=== PATIENT | female | born 1975 | race Hispanic/Latino ===

== ENCOUNTER 2018-10-14 15:51 | Emergency (ER) | payer MEDICAID, OTHER ==
--- NOTE | 2018-10-14 16:09 | ED PDOC ---
Arrival/HPI - General Historian: Patient - History of Present Illness Narrative History of Present Illness (Text): 10/14/18 16:30 43 y/o female, allergic to morphine, c/o facial and body itching x 2 days. itching rash, no change in soap/clothing/detergent, no fever or chills, no headache or night sweat, no dizziness, no change in vision, no other medical or psychological complaints. Past Medical History - Provider Review Nursing Documentation Reviewed: Yes - Infectious Disease Hx of Infectious Diseases: None - Tetanus Immunization Tetanus Immunization: Up to Date - Cardiac Hx Cardiac Disorders: No - Pulmonary Hx Asthma: Yes - Neurological Hx Neurological Disorder: No - HEENT Hx HEENT Disorder: No - Renal Hx Renal Disorder: No - Endocrine/Metabolic Hx Endocrine Disorders: No - Hematological/Oncological Hx Blood Disorders: No - Integumentary Hx Dermatological Disorder: No - Musculoskeletal/Rheumatological Hx Musculoskeletal Disorders: No - Gastrointestinal Hx Gastrointestinal Disorders: No - Genitourinary/Gynecological Hx Genitourinary Disorders: No - Psychiatric Hx Depression: Yes Hx Emotional Abuse: No Hx Physical Abuse: No Hx Substance Use: No - Surgical History Hx Cholecystectomy: Yes (8 yrs) - Anesthesia Hx Anesthesia: Yes Hx Anesthesia Reactions: No Hx Malignant Hyperthermia: No - Suicidal Assessment Feels Threatened In Home Enviroment: No Family/Social History - Physician Review Nursing Documentation Reviewed: Yes Family/Social History: Unknown Family HX Smoking Status: Heavy Smoker > 10 Cigarettes Daily Hx Alcohol Use: No Hx Substance Use: No Hx Substance Use Treatment: No Allergies/Home Meds Allergies/Adverse Reactions: Allergies morphine Allergy (Verified 10/14/18 16:32) RASH shellfish Allergy (Uncoded 10/14/18 16:16) ANAPHYLAXIS Home Medications: Home Meds Medication Instructions Recorded Confirmed Diazepam 10 mg PO TID 05/04/14 02/28/15 Oxycodone Hydrochloride [Oxycodone 10 mg PO QID 05/04/14 02/28/15 HCl] Omeprazole 40 mg PO BID 01/27/15 02/28/15 Albuterol [Proventil] 02/28/15 02/28/15 Beclomethasone Dipropionate [Qvar] 0.08 mg IH PRN PRN 02/28/15 02/28/15 Review of Systems - Review of Systems Constitutional: absent: Fatigue, Fevers Eyes: absent: Vision Changes ENT: absent: Hearing Changes Respiratory: absent: SOB, Cough Cardiovascular: absent: Chest Pain Gastrointestinal: absent: Abdominal Pain, Nausea, Vomiting Skin: Rash, Pruritis, Skin Lesions. absent: Laceration, Abscess, Ulcer, Cellulitis Neurological: absent: Headache, Dizziness Psychiatric: absent: Anxiety, Depression, Suicidal Ideation Physical Exam - Systems Exam Head: Present: Atraumatic, Normocephalic Pupils: Present: PERRL Extroacular Muscles: Present: EOMI Conjunctiva: Present: Normal Mouth: Present: Moist Mucous Membranes Neck: Present: Normal Range of Motion Respiratory/Chest: Present: Clear to Auscultation, Good Air Exchange. No: Respiratory Distress, Accessory Muscle Use Cardiovascular: Present: Regular Rate and Rhythm, Normal S1, S2. No: Murmurs Abdomen: No: Tenderness, Distention, Peritoneal Signs Back: Present: Normal Inspection Upper Extremity: Present: Normal Inspection. No: Cyanosis, Edema Lower Extremity: Present: Normal Inspection. No: Edema Neurological: Present: GCS=15, CN II-XII Intact, Speech Normal Skin: Present: Warm, Dry, Rashes (generalized hives on the facial/neck/chest and bilateral upper extremities, no cellulitis or ulcers. ), Normal Color Psychiatric: Present: Alert, Oriented x 3, Normal Insight, Normal Concentration Medical Decision Making ED Course and Treatment: 10/14/18 16:30 -benadryl/pepcid/prednisone 10/14/18 17:56 -Urine hcg is negative -Itching rash resolved, feeling much better. -Discharge home with pepcid, prednisone, benadryl, avoid contact with possible allergen, follow up with your own pmd and materials planning manager within 2 days, return to the ER or any new or worsening signs or symptoms. - PA / LOG LOADER / Resident Statement MD/DO has reviewed & agrees with the documentation as recorded. Disposition/Present on Arrival - Present on Arrival Any Indicators Present on Arrival: No History of DVT/PE: No History of Uncontrolled Diabetes: No Urinary Catheter: No History of Decub. Ulcer: No History Surgical Site Infection Following: None - Disposition Have Diagnosis and Disposition been Completed?: Yes Diagnosis: Allergic reaction Disposition: HOME/ ROUTINE Disposition Time: 17:56 Patient Plan: Discharge Patient Problems: Current Active Problems Problem Status Onset Allergic reaction Acute Condition: IMPROVED Additional Instructions: -Discharge home with pepcid, prednisone, benadryl, avoid contact with possible allergen, follow up with your own pmd and materials planning manager within 2 days, return to the ER or any new or worsening signs or symptoms. Prescriptions: DiphenhydrAMINE [Benadryl] 50 mg PO QID PRN #20 cap PRN Reason: Other Famotidine [Pepcid] 20 mg PO BID #14 tab Prednisone 50 mg PO DAILY #4 tab Referrals: Aislinn Rosales MD [Staff Provider] - Follow up with primary [facility] [place] [Outside] - Follow up with primary Forms: WORK NOTE
[2018-10-14 16:18] VITALS: RESP 18; TEMP 99; BMI 45.7
[2018-10-14] MEDS ORDERED: DiphenhydrAMINE 50 mg/ml Inj IM STA (16:32)
[2018-10-14 18:37] VITALS: BP 135/67; PULSE 85; O2SAT 96
== END 2018-10-14 19:05 | disposition home or self-care (01) ==
LOC: ED 15:51
DX: T78.49XA Other allergy, initial encounter (principal); X58.XXXA Exposure to other specified factors, initial encounter
CPT/HCPCS: 96372; 99283; J1200